=== PATIENT | female | born 1985 | race Caucasian/White ===

== ENCOUNTER 2017-11-15 07:20 | Emergency (ER) | payer SELFPAY ==
[~2017-11-15] VITALS: Ht 167.6 cm; Wt 55.0 kg
[2017-11-15 11:54] VITALS: BP 108/60
== END 2017-11-15 12:55 | disposition left against medical advice (07) ==
LOC: ER 07:43
DX: Z04.8 Encounter for examination and observation for other specified reasons (principal); F90.9 Attention-deficit hyperactivity disorder, unspecified type; F31.9 Bipolar disorder, unspecified; F12.10 Cannabis abuse, uncomplicated; Z59.0 Homelessness
CPT/HCPCS: 99283